=== PATIENT | male | born 1965 | race Caucasian/White ===

== ENCOUNTER → 2017-12-03 | Outpatient (CLI) | payer BC | LOC: CV 16:53 | DX: E78.00 Pure hypercholesterolemia, unspecified (principal); I25.10 Atherosclerotic heart disease of native coronary artery without angina pectoris; Z82.49 Family history of ischemic heart disease and other diseases of the circulatory system ==

== ENCOUNTER → 2018-04-24 | Outpatient (CLI) | payer OTHER ==
[~2018-04-24] VITALS: Ht 177.8 cm; Wt 88.5 kg
[~2018-04-24] MED LIST: ASPIR 8181 MG PO; PRILOSEC 20 MG20 MG PO
--- NOTE | ~2018-04-24 | P ---
[facility] [address] [place] [address] PROCEDURE REPORT Name: ZAINAB DRAPER Pat Room #: REG [facility]#: [id number] Admission: 04/24/18 Attend Phys: Zi Cavazos MD Discharge: Date of : 65 Report #: [id number] THIS REPORT FOR: //name// CC: Zi Ashby BRIEF HISTORY: The patient is a 52-year-old male for average risk screening colonoscopy. PREOPERATIVE DIAGNOSIS: Average risk screening colonoscopy. POSTOPERATIVE DIAGNOSES: 1. A 5-6 mm sessile polyp, in the transverse colon. 2. Qmqb-[id number]-ytyxwluk sigmoid diverticulosis coli. MEDICATIONS: Deep sedation with propofol for anesthesia. SPECIMEN: Polyp from mid transverse colon. ESTIMATED BLOOD LOSS: 3 mL. PROCEDURE: Colonoscopy to cecum and terminal ileum with snare polypectomy. FINDINGS: Prior to propofol sedation, procedure of colonoscopy discussed with the patient as well as potential risks and its complications. He indicates he understands and desires to proceed. DESCRIPTION OF PROCEDURE: With the patient in left lateral decubitus position, digital examination was completed, which revealed no abnormalities. Subsequently, the Olympus video colonoscope was introduced in the rectum, advanced under direct vision to the cecum. Done with minimal difficulty. The cecum was identified by the ileocecal valve and the appendiceal orifice. I was able to visualize the distal segment of terminal ileum, which was inspected and noted to be unremarkable. At that point, the scope was slowly withdrawn and careful circumferential views were obtained including retroflexion of scope in the ascending colon. Upon slow withdrawal of the scope, the prep was noted to be excellent. The mucosa was within normal limits, normal vascular pattern and normal light reflex. As we withdrew the scope, no mucosal abnormalities were seen until the transverse colon was reached at which point a 5-6 mm sessile polyp was removed by cold snare polypectomy and recovered. One tiny fragment was removed with biopsy forceps. Scope was further withdrawn and no additional polypoid lesions were seen. Mucosa of the remainder of the colon was normal. In the sigmoid colon, a few scattered diverticula were seen. There was no evidence of diverticulitis. Scope was withdrawn in the rectum. Upon retroflexion, no abnormalities were seen. Scope was withdrawn. The patient tolerated the procedure well. [address] [address] PROCEDURE REPORT Name: ZAINAB DRAPER Room #: REG [facility]#: [id number] Admission: 04/24/18 Attend Phys: Zi Cavazos MD Discharge: Date of : 65 Report #: [id number] CONDITION OF THE PATIENT UPON DISCHARGE: Following procedure, the patient drowsy, arousable and conversant and will be discharged home when fully ambulatory. INSTRUCTIONS TO THE PATIENT AND FAMILY AT THE TIME OF DISCHARGE: We will follow up on the path. If the polyp is an adenoma, he should return in 5 years; if it is not adenomas, then 10 years would be indicated. Withdrawal time from the cecum was 11 minutes 41 seconds. <ELECTRONICALLY SIGNED> By: Zi Cavazos MD 04/25/18 [id number] Zi Cavazos MD /nt
--- NOTE | ~2018-04-24 | PATH ---
[facility] [address] [place] [address] PATHOLOGY RPT PROCEDURE Name: ZAINAB DRAPER Room #: REG [facility].#: [id number] Admission: 04/24/18 Date of : 65 Discharge: Report #: [id number] Path Case #: [id number] [facility] Accession Number: [id number] . 01 Material submitted: . POLYP AT MID TRANSVERSE . 01 Clinical history: . Screening Colon polyp, diverticulosis . 02 Diagnosis: Polyp, at mid transverse, endoscopic biopsy: - Inflammatory polyp with hyperplastic changes. - No definite dysplasia identified. (IUV:kathleen; 05/01/2018) QMS/05/01/2018 . 02 Electronically signed: . Shantell Garcia MD, Pathologist NPI- [id number] . 01 Gross description: . The specimen is received in formalin, labeled "Jonnie, Zainab, polyp at mid transverse" and consists of 2 fragments of soft martinez tissue measuring 0.2 x 0.2 x 0.1 cm and 0.5 x 0.4 x 0.3 cm. They are entirely submitted in A1. (SDY; 04/24/2018) SYU/SYU . 02 Pathologist provided ICD-10: K51.40 . 02 CPT . 592990 Specimen Comment: A courtesy copy of this report has been sent to Specimen Comment: [phone], . Specimen Comment: Report sent to / DR CASTILLO Performed at: [address], [place], [place] [id number] MD Kilo Ham MD Phone: [phone] Performed at: [address] [id number] MD Shantell Garcia MD Phone: [phone]
== END | disposition home or self-care (01) ==
LOC: GI 06:20
DX: Z12.11 Encounter for screening for malignant neoplasm of colon (principal); K63.5 Polyp of colon; K57.30 Diverticulosis of large intestine without perforation or abscess without bleeding; K21.9 Gastro-esophageal reflux disease without esophagitis; Z98.890 Other specified postprocedural states; Z79.899 Other long term (current) drug therapy; Z88.0 Allergy status to penicillin; Z79.82 Long term (current) use of aspirin
CPT/HCPCS: 62110; 62900